=== PATIENT | female | born 1965 | race Caucasian/White ===

== ENCOUNTER → 2019-04-13 12:46 | Outpatient (CLI) | payer SELFPAY ==
--- NOTE | 2019-04-13 | LES_PTH ---
PATIENT: TAMEKA GALLARDO LOC: [facility] U#:[id number] AGE/SX: 60/F ROOM: RE04/13/[address]: Dr. Josiah Camarena DDS : 1965 BED: DIS: SPEC #: [id number] RECD: 04/13/19 13:34 STATUS: GAVIN AL #: [id number] FARTUN: 04/13/19 00:[address]: Josiah Camarena DEPT: SURGICAL PATHOLOGY RECD BY: Edilberto España Tissues: Mandible, NOS Procedures: Surgery Specimen Level IV HEADER OPERATION: Biopsy right mandible PRE-OP DIAGNOSIS: Swelling right mandible TISSUE SUBMITTED: Intraosseous lesion MICROSCOPIC DIAGNOSIS Right mandible, biopsy: Consistent with odontogenic keratocyst with reactive changes. See comment. RON:shawn 04/16/19 COMMENT Correlation with clinical, radiologic findings and appropriate follow up are necessary. This case is discussed with Dr. Josiah Camarena on 04/16/19. MICROSCOPIC DESCRIPTION Slides are reviewed. The specimen shows orthokeratosis, histiocytic reaction, giant cells, cholesterol clefts and abundant keratin debris. GROSS DESCRIPTION Received in fixative is one container labeled with the patient's name and designated right mandible. The specimen consists of multiple fragments of pink hemorrhagic soft tissue that in aggregate measure 2 x 2 x 0.2 cm. The specimen is totally submitted in one cassette. / SJ:shawn 04/13/19 TC:5 CPT: 82087
== END ==
PROVIDERS: Referring Provider Dentist Oral and Maxillofacial Surgery; Visit Provider Dentist Oral and Maxillofacial Surgery
DX: R22.0 Localized swelling, mass and lump, head (principal)
CPT/HCPCS: 88305